=== PATIENT | male | born 1960 | race Caucasian/White ===

== ENCOUNTER 2018-10-11 06:08 | Emergency (ER) | payer MEDICARE, MEDICAID ==
--- NOTE | 2018-10-11 06:22 | ER Document Report ---
ED Extremity Problem, Lower - General Chief Complaint: Foot Injury Stated Complaint: FOOT INJURY Time Seen by Provider: 10/11/18 06:20 TRAVEL OUTSIDE OF THE [place] IN LAST 30 DAYS: No - HPI Notes: Patient is a 58-year-old male that presents to the emergency department for chief complaint of right foot injury. Patient states yesterday while wearing tennis shoes he stepped on a metal rake. The rake went through his shoe and punctured his right foot. He reports increased pain and swelling in the right foot. The pain is worse with ambulation. He has not taken any pxqk-hjp-[id number] medicines for pain. He denies any fevers or chills. He denies foreign body sensation. He is not sure when his last tetanus vaccine was. Past Medical History: Schizophrenia, COPD, hypertension, Bautista's esophagus Past Surgical History: Reviewed in chart Social History: Daily tobacco. History of alcohol abuse. Denies drug use. Family History: Reviewed and noncontributory for presenting illness Allergies: Reviewed, see documented allergy list. REVIEW OF SYSTEMS: CONSTITUTIONAL : No fever No chills No diaphoresis No recent illness EENT: No vision changes No congestion No sore throat CARDIOVASCULAR: No chest pain No palpitations RESPIRATORY: No shortness of breath No cough No difficulty breathing GASTROINTESTINAL: No abdominal pain No nausea No vomiting No diarrhea GENITOURINARY: No dysuria No hematuria No difficulty urinating MUSCULOSKELETAL: No back pain No leg pain No arm pain SKIN: No rashes Right foot lesions LYMPHATIC: No swollen, enlarged glands. NEUROLOGICAL: No lightheadedness No headache No weakness No paresthesias PSYCHIATRIC: No anxiety No depression PHYSICAL EXAMINATION: Vital signs reviewed, nursing noted reviewed. GENERAL: Well-appearing, well-nourished and in no acute distress. HEAD: Atraumatic, normocephalic. EYES: Eyes appear normal, extraocular movements intact, sclera anicteric, conjunctiva are normal. ENT: nares patent, oropharynx clear without exudates. Moist mucous membranes. NECK: Normal range of motion, supple without lymphadenopathy LUNGS: Breath sounds clear to auscultation bilaterally and equal. No wheezes rales or rhonchi. HEART: Regular rate and rhythm without murmurs ABDOMEN: Soft, nontender, normoactive bowel sounds. No rebound, guarding, or rigidity. No masses appreciated. EXTREMITIES: Nontender, good range of motion, no pitting or edema. NEUROLOGICAL: No focal neurological deficits. Moves all extremities spontaneously Motor and sensory grossly intact on exam. PSYCH: Normal mood, normal affect. SKIN: Warm, Dry, normal turgor. Four superficial plantar right foot puncture wound with mild surrounding erythema and edema - Related Data Allergies/Adverse Reactions: Penicillins Allergy (Unknown, Verified 08/18/16 10:14) Unknown reaction Sulfa (Sulfonamide Antibiotics) Allergy (Unknown, Verified 08/18/16 10:14) Unknown reaction Past Medical History - Social History Smoking Status: Current Every Day Smoker Family History: Reviewed & Not Pertinent - Past Medical History Cardiac Medical History: Reports: Hx Hypertension Denies: Hx Coronary Artery Disease, Hx Heart Attack Pulmonary Medical History: Reports: Hx Pneumonia Denies: Hx Asthma, Hx Bronchitis, Hx COPD Neurological Medical History: Denies: Hx Cerebrovascular Accident, Hx Seizures Musculoskeletal Medical History: Reports Hx Arthritis - BACK, Reports Hx Gout Skin Medical History: Reports Hx Cellulitis, Reports Hx MRSA - Immunizations Hx Diphtheria, Pertussis, Tetanus Vaccination: Yes Physical Exam - Vital signs Vitals: Temp Pulse Resp BP Pulse Ox 97.6 F 115 H 20 181/84 H 96 10/11/18 06:15 10/11/18 06:15 10/11/18 06:15 10/11/18 06:15 10/11/18 06:15 Course - Re-evaluation Re-evalutation: 10/11/18 07:08 Vitals reviewed. Nursing notes reviewed. Patient's tetanus vaccine was updated. He was given Tylenol for pain. He does have some surrounding cellulitis which is currently mild. There is no sepsis or lymphatic streaking. Patient was given a dose of Cipro. Xray shows no bony injury or foreign body. Patient discharged in stable condition Foot X-Ray 10/11/18 06:17 IMPRESSION: Diffuse soft tissue swelling without fracture. Negative for radiopaque foreign body copyright 2011 [employer]- All Rights Reserved - Vital Signs Vital signs: Temp Pulse Resp BP Pulse Ox 97.6 F 115 H 20 181/84 H 96 10/11/18 06:15 12 06:15 10/11/18 06:15 10/11/18 06:15 10/11/18 06:15 Discharge - Discharge Clinical Impression: Cellulitis of right foot Puncture wound of right foot Qualifiers: Encounter type: initial encounter Qualified Code(s): S91.331A - Puncture wound without foreign body, right foot, initial encounter Condition: Stable Disposition: HOME, SELF-CARE Instructions: Cellulitis ([facility]), Puncture Wound ([facility]) Additional Instructions: Please return to the emergency department if you have any worsening, or concern of your symptoms. Please return to the emergency department if you develop chest pain, difficulty breathing, severe abdominal pain, or ongoing vomiting. Please follow-up with your primary care physician in 2-3 days and any other recommended physicians. If prescribed, take all medications as directed. If you have any questions or concerns do not hesitate to return the emergency department for evaluation. [] Prescriptions: Ciprofloxacin HCl [Cipro 500 mg Tablet] 500 mg PO BID #20 tablet Referrals: TORRES QUARLES PA-C [NO LOCAL MD] - Follow up in 3-5 days
--- NOTE | 2018-10-11 06:53 | RADIOLOGY REPORT (SQ) ---
EXAM DESCRIPTION: XR FOOT 3 OR MORE VIEWS COMPLETED DATE/TME: 10/11/2018 06:17 CLINICAL HISTORY: 58 years, Male, pain/possible foreign object COMPARISON: None. NUMBER OF VIEWS: 3 TECHNIQUE: 3 view right foot LIMITATIONS: FINDINGS: Negative for acute fracture or dislocation. Negative for radiopaque foreign body. There is diffuse soft tissue swelling. IMPRESSION: Diffuse soft tissue swelling without fracture. Negative for radiopaque foreign body copyright 2010 [employer] All Rights Reserved
[2018-10-11] MEDS ORDERED: ACETAMINOPHEN 325 MG TABLET PO ONE (07:02)
[2018-10-11] MEDS ORDERED: CIPROFLOXACIN HCL 500 MG TABLET PO ONE (07:02)
[2018-10-11] MEDS ORDERED: DIPH/PERTUSS(ACELL)/TETANUS VAC/PF 0.5 ML SYR (>=10YO) IM ONE (07:06)
[2018-10-11 07:25] VITALS: BP 170/66
== END 2018-10-11 07:23 | disposition home or self-care (01) ==
LOC: ER 06:08
DX: S91.331A Puncture wound without foreign body, right foot, initial encounter (principal); L03.115 Cellulitis of right lower limb; Z88.0 Allergy status to penicillin; Z88.2 Allergy status to sulfonamides; F17.210 Nicotine dependence, cigarettes, uncomplicated; I10 Essential (primary) hypertension; Z87.01 Personal history of pneumonia (recurrent); Z86.14 Personal history of Methicillin resistant Staphylococcus aureus infection; W27.1XXA Contact with garden tool, initial encounter; Y92.096 Garden or yard of other non-institutional residence as the place of occurrence of the external cause
CPT/HCPCS: 99283; 90471; 73630; 90715; A9270 ×2

== ENCOUNTER → 2018-10-13 | Outpatient (CLI) | payer MEDICARE, MEDICAID | LOC: OD 13:12 | PROVIDERS: ATTEND Physician Assistant | DX: R07.9 Chest pain, unspecified (principal); R00.0 Tachycardia, unspecified | CPT/HCPCS: 36415; 84443 ==

== ENCOUNTER 2019-01-13 19:29 | Emergency (ER) | payer MEDICARE, MEDICAID ==
--- NOTE | 2019-01-13 20:40 | ER Document Report ---
ED General - General Chief Complaint: Shortness Of Breath Stated Complaint: CHEST PAIN Time Seen by Provider: 01/13/19 20:32 Primary Care Provider: GERMAN ORTIZ PA [Primary Care Provider] - Follow up as needed Notes: Patient is a 58-year-old male with a past medical history of hypertension, COPD, current everyday smoker, presents complaining of 2 weeks of left-sided chest pain that has become progressively worse over that period of time. Patient describes the pain as being a stabbing, severe pain worsened by breathing. States that originally was intermittent but has now become constant over the last 2 days. Nothing seems to improve his symptoms. Denies any history of similar symptoms in the past. Patient reports that he is tachycardia at baseline has had recurrent chest pain under similar circumstances and has been following with a local control equipment electrician regarding these issues. States that he had a monitor done but has not yet had a stress test. Denies any known history of coronary artery disease. Nothing is necessarily new or different that prompted a visit to the emergency department today. TRAVEL OUTSIDE OF THE [place] IN LAST 30 DAYS: No - Related Data Allergies/Adverse Reactions: Penicillins Allergy (Unknown, Verified 08/18/16 10:14) Unknown reaction Sulfa (Sulfonamide Antibiotics) Allergy (Unknown, Verified 08/18/16 10:14) Unknown reaction Past Medical History - General Information source: Patient - Social History Smoking Status: Current Every Day Smoker Frequency of alcohol use: Occasional Drug Abuse: None Lives with: Family Family History: Reviewed & Not Pertinent - Past Medical History Cardiac Medical History: Reports: Hx Hypertension Denies: Hx Coronary Artery Disease, Hx Heart Attack Pulmonary Medical History: Reports: Hx Pneumonia Denies: Hx Asthma, Hx Bronchitis, Hx COPD Neurological Medical History: Denies: Hx Cerebrovascular Accident, Hx Seizures Renal/ Medical History: Denies: Hx Peritoneal Dialysis Musculoskeletal Medical History: Reports Hx Arthritis - BACK, Reports Hx Gout Skin Medical History: Reports Hx Cellulitis, Reports Hx MRSA - Immunizations Hx Diphtheria, Pertussis, Tetanus Vaccination: Yes Review of Systems - Review of Systems Notes: Constitutional: Negative for fever. HENT: Negative for sore throat. Eyes: Negative for visual changes. Cardiovascular: Positive for chest pain. Respiratory: Positive for shortness of breath. Gastrointestinal: Negative for abdominal pain, vomiting or diarrhea. Genitourinary: Negative for dysuria. Musculoskeletal: Negative for back pain. Skin: Negative for rash. Neurological: Negative for headaches, weakness or numbness. 10 point ROS negative except as marked above and in HPI. Physical Exam - Vital signs Vitals: Temp Pulse Resp BP Pulse Ox 98.3 F 116 H 24 H 87/57 L 92 01/13/19 20:13 01/13/19 20:13 01/13/19 20:13 01/13/19 20:13 01/13/19 20:13 Interpretation: Hypotensive, Tachycardic Notes: PHYSICAL EXAMINATION: GENERAL: Appears moderately uncomfortable but in no acute distress HEAD: Atraumatic, normocephalic. EYES: Pupils equal round and reactive to light, extraocular movements intact, sclera anicteric, conjunctiva are normal. ENT: nares patent, oropharynx clear without exudates. Moderate dry mucous membranes. NECK: Normal range of motion, supple without lymphadenopathy LUNGS: Breath sounds clear to auscultation bilaterally and equal. Faint expiratory wheezing HEART: Regular tachycardia without murmurs ABDOMEN: Soft, nontender, normoactive bowel sounds. No guarding, no rebound. No masses appreciated. EXTREMITIES: Normal range of motion, no pitting or edema. No cyanosis. NEUROLOGICAL: No focal neurological deficits. Moves all extremities spontaneously and on command. PSYCH: Normal mood, normal affect. SKIN: Warm, Dry, normal turgor, no rashes or lesions noted. Course - Re-evaluation Re-evalutation: 01/13/19 20:57 Patient presents with 2 weeks of stabbing left-sided chest pain, started intermittently, has become more constant since onset. Patient notes heart to take a deep breath. Noted to be tachycardic on presentation although he does report that he is normally mildly tachycardic typically in the 102-110 range. Relatively high level of concern for an acute pulmonary embolus as patient continuously states that his pain is severe, worsened by breathing, states that he cannot get a good breath due to this pain. The patient was also noted to be hypotensive at time of presentation in the 80s systolic. Multiple repeat EKGs show mild ST elevations in the inferior leads although the duration of the patient's symptoms as well as his characterization of pain as well as the height of the elevation of the ST changes is not sensitive enough to declare this being an ST elevation [place]. Will proceed with CTA of the chest, labs including troponin assay testing, symptom control and reassess. 01/13/19 22:48 Troponin is finally resulted and is elevated at 4.06. Patient symptoms are much improved. Given his EKG changes, troponin elevation, patient will be started on aspirin, lovenox, atorvastatin, transfer for cath. 01/13/19 23:34 I did discuss this case with the attending control equipment electrician at [facility] . He was unable to review EKGs although these were faxed. We did discuss the atypical nature of the patient's pain, the borderline nature of the ECG elevations in leads II and III that he is currently chest pain-free. The patient will be transferred not as a STEMI but as a NSTEMI. Patient is currently chest pain-free. 01/13/19 23:50 The patient has chosen to leave the facility against medical advice. The relevant issues have been reviewed and discussed with the patient and family at the bedside. At the time of this assessment there is no indication for involuntary commitment. The patient is alert, oriented, and able to express clearly their reasoning for not wanting to remain in the emergency department for further treatment. The patient is not clinically psychotic, intoxicated, and denies and suicidal ideation. Differential or suspected diagnoses based on medical screening exam: Acute [place] (NSTEMI vs STEMI) The patient is aware of the concerning diagnoses and acknowledges understanding of the reasons for the following recommendations: Transfer for cardiac cath, possible bypass The following recommendations/services were offered and refused: Transfer, ongoing medical management The following risks were explained: , [place], permanent disability, loss of function Clinical impression: Patient is competent to make decisions regarding the medical that is being offered. This conversation was had in front of the charge nurse Haleigh Zavala as well as the bedside nurse. Review their documentation for supporting evidence of this conversation and its completeness. 01/14/19 03:06 - Vital Signs Vital signs: Temp Pulse Resp BP Pulse Ox 98.3 F 116 H 12 114/74 94 01/13/19 20:13 01/13/19 20:13 01/13/19 23:46 01/13/19 23:46 01/13/19 23:46 - Laboratory Result Diagrams: 01/13/19 20:22 01/13/19 21:50 Laboratory results interpreted by me: 01/13/19 01/13/19 20:22 21:50 RBC 4.14 L MCH 35.1 H MCHC 36.2 H Sodium 135.4 L Calcium 8.1 L Total Protein 5.6 L Albumin 3.0 L - Diagnostic Test Radiology reviewed: Reports reviewed - EKG Interpretation by Me Additional EKG results interpreted by me: 01/14/19 03:16 Sinus tachycardia, rate 115, 0.5 mm elevation in leads II and III without r eciprocal changes. QTC 482 Critical Care Note - Critical Care Note Total time excluding time spent on procedures (mins): 36 Comments: Critical care time spent obtaining history from patient or surrogate, di scussions with consultants, development of treatment plan with patient or surrogate, evaluation of patient's response to treatment, examination of patient, ordering and performing treatments and interventions, ordering and review of laboratory studies, re-evaluation of patient's condition, ordering and review of radiographic studies and review of old charts Discharge - Discharge Clinical Impression: NSTEMI (non-ST elevated myocardial infarction) Chest pain Qualifiers: Chest pain type: unspecified Qualified Code(s): R07.9 - Chest pain, unspecified Condition: Critical Disposition: AGAINST MEDICAL ADVICE Additional Instructions: You have left the hospital AGAINST MEDICAL ADVICE today. I believe you are having a Heart attack based on your elevated blood work and your EKGs. I have tried to explain to the seriousness of your diagnosis and the very real chance that you could go home and . Your strongly encouraged to return to the hospital to complete your treatment plan which includes transfer to an alternative facility for cardiac catheterization and consideration of bypass. At any time your welcome to return to this hospital or any alternative hospital to complete your treatment. Referrals: GERMAN ORTIZ PA [Primary Care Provider] - Follow up as needed
[2019-01-13 20:42] LABS: ABSOLUTE BASOPHILS # (AUTO) 0.1 10^3/uL (0.0-0.2); ABSOLUTE EOSINOPHILS # (AUTO) 0.2 10^3/uL (0.0-0.6); ABSOLUTE LYMPHOCYTES (AUTO) 1.7 10^3/uL (0.5-4.7); ABSOLUTE MONOCYTES (AUTO) 0.9 10^3/uL (0.1-1.4); ABSOLUTE NEUT (AUTO) 7.5 10^3/uL (1.7-8.2); BASOPHILS % (AUTO) 0.6 % (0-2); EOSINOPHILS % (AUTO) 2.1 % (0-6); HEMATOCRIT 40.3 % (37.9-51.0); HEMOGLOBIN 14.6 g/dL (13.5-17.0); LYMPHOCYTES % (AUTO) 16.5 % (13-45); MEAN CORPUSCULAR HEMOGLOBIN 35.1 pg (27.0-33.4); MEAN CORPUSCULAR HGB CONC 36.2 g/dL (32.0-36.0); MEAN CORPUSCULAR VOLUME 97 fl (80-97); MONOCYTES % (AUTO) 8.8 % (3-13); PLATELET COUNT 384 10^3/uL (150-450); RED BLOOD COUNT 4.14 10^6/uL (4.35-5.55); RED CELL DISTRIBUTION WIDTH 13.5 % (11.5-14.0); TOTAL CELLS COUNTED % (AUTO) 100 %; WHITE BLOOD COUNT 10.5 10^3/uL (4.0-10.5)
[2019-01-13] MEDS ORDERED: KETOROLAC TROMETHAMINE INJ/PF 30 MG/1 ML SDV IV ONE (20:59)
[2019-01-13] MEDS ORDERED: NORMAL SALINE 1000 ML 1,000 ML IV ONE (20:59)
--- NOTE | 2019-01-13 21:40 | RADIOLOGY REPORT (SQ) ---
EXAM DESCRIPTION: CT CHEST ANGIOGRAPHY WITHOUT THEN WITH IV CONTRAST COMPLETED DATE/TME: 01/13/2019 20:34 CLINICAL HISTORY: 58 years, Male, hypotension, pleuritic pain PROCEDURE: CLINICAL HISTORY: 58 years Male hypotension, pleuritic pain COMPARISON: None. TECHNIQUE: Contiguous axial images were obtained through the chest during the infusion of IV contrast. Reformatted images obtained. MIP reformatted images obtained. This exam was performed according to our department optimization program which includes automated exposure control, adjustment of the mA and/or kv according to patient size and/or use of iterative reconstruction technique. FINDINGS: There are mildly enlarged mediastinal lymph nodes. Atherosclerosis is seen. There is a small hiatal hernia. There is extensive emphysematous change of the lungs with numerous peripheral pulmonary bulla. Atelectasis and scar involve the lung bases. No pneumothorax is seen. Heart size is normal. No pleural effusions. No PE is seen. No evidence of aortic aneurysm. No other significant abnormality. IMPRESSION: Mildly enlarged mediastinal lymph nodes. Hiatal hernia. Extensive interstitial disease of the lungs. No evidence of pulmonary embolus.
[2019-01-13 22:34] LABS: ALANINE AMINOTRANSFERASE 34 U/L (21-72); ALKALINE PHOSPHATASE 87 U/L (38-126); ANION GAP 9 (5-19); ASPARTATE AMINO TRANSFERASE 25 U/L (17-59); BILIRUBIN,DIRECT 0.2 mg/dL (0.0-0.4); BILIRUBIN,TOTAL 0.4 mg/dL (0.2-1.3); BLOOD UREA NITROGEN 13 mg/dL (7-20); CALCIUM 8.1 mg/dL (8.4-10.2); CARBON DIOXIDE 23 mmol/L (22-30); CHLORIDE 103 mmol/L (98-107); GLUCOSE 104 mg/dL (75-110); SODIUM 135.4 mmol/L (137-145); TOTAL PROTEIN 5.6 g/dL (6.3-8.2)
[2019-01-13] MEDS ORDERED: ASPIRIN 81 MG TABLET, CHEWABLE PO ONE (22:49)
[2019-01-13] MEDS ORDERED: ATORVASTATIN CALCIUM 80 MG TABLET PO ONE (22:49)
[2019-01-13] MEDS ORDERED: ENOXAPARIN SODIUM INJ 80 MG/0.8 ML DISP.SYRIN SUBCUT SCH (23:00)
[2019-01-14 00:09] VITALS: BP 114/74
--- NOTE | 2019-01-14 07:28 | EKG REPORT ---
SEVERITY:- ABNORMAL ECG - SINUS TACHYCARDIA INFERIOR INFARCT : ? AGE BORDERLINE PROLONGED QT INTERVAL : Confirmed by: Graciela Gan MD 14-Jan-2019 07:27:45
--- NOTE | 2019-01-14 07:29 | EKG REPORT ---
SEVERITY:- ABNORMAL ECG - SINUS TACHYCARDIA INFERIOR INFARCT : ? AGE : Confirmed by: Graciela Gan MD 14-Jan-2019 07:28:14
--- NOTE | 2019-01-14 07:29 | EKG REPORT ---
SEVERITY:- ABNORMAL ECG - SINUS TACHYCARDIA PROBABLE LEFT ATRIAL ABNORMALITY CONSISTENT WITH INFERIOR INFARCT ST ELEVATION SUGGESTS PERICARDITIS : Confirmed by: Graciela Gan MD 14-Jan-2019 07:29:09
[2019-01-14] MEDS ORDERED: ENOXAPARIN SODIUM INJ 80 MG/0.8 ML DISP.SYRIN SUBCUT SCH (10:00)
== END 2019-01-14 00:13 | disposition left against medical advice (07) ==
LOC: ER 19:29
DX: I21.4 Non-ST elevation (NSTEMI) myocardial infarction (principal); R06.02 Shortness of breath; R07.9 Chest pain, unspecified; I10 Essential (primary) hypertension; J44.9 Chronic obstructive pulmonary disease, unspecified; F17.200 Nicotine dependence, unspecified, uncomplicated; Z88.0 Allergy status to penicillin; Z88.2 Allergy status to sulfonamides
CPT/HCPCS: 93005; 99291; 96372; 96374; 36415; 85025; 80053; 84484; 71275; 93010; A9270 ×2; J1885; J7030; J1650

== ENCOUNTER → 2019-02-02 | Outpatient (CLI) | payer MEDICARE, MEDICAID ==
[2019-02-02 10:46] LABS: ABSOLUTE BASOPHILS # (AUTO) 0.1 10^3/uL (0.0-0.2); ABSOLUTE EOSINOPHILS # (AUTO) 0.5 10^3/uL (0.0-0.6); ABSOLUTE LYMPHOCYTES (AUTO) 1.8 10^3/uL (0.5-4.7); ABSOLUTE MONOCYTES (AUTO) 0.5 10^3/uL (0.1-1.4); ABSOLUTE NEUT (AUTO) 4.6 10^3/uL (1.7-8.2); BASOPHILS % (AUTO) 1.9 % (0-2); EOSINOPHILS % (AUTO) 6.7 % (0-6); HEMATOCRIT 43.7 % (37.9-51.0); HEMOGLOBIN 15.7 g/dL (13.5-17.0); LYMPHOCYTES % (AUTO) 24.1 % (13-45); MEAN CORPUSCULAR HEMOGLOBIN 34.6 pg (27.0-33.4); MEAN CORPUSCULAR HGB CONC 35.9 g/dL (32.0-36.0); MEAN CORPUSCULAR VOLUME 96 fl (80-97); MONOCYTES % (AUTO) 6.4 % (3-13); PLATELET COUNT 321 10^3/uL (150-450); RED BLOOD COUNT 4.53 10^6/uL (4.35-5.55); RED CELL DISTRIBUTION WIDTH 13.4 % (11.5-14.0); SEGMENTED NEUTROPHILS % (AUTO) 60.9 % (42-78); TOTAL CELLS COUNTED % (AUTO) 100 %; WHITE BLOOD COUNT 7.6 10^3/uL (4.0-10.5)
[2019-02-02 11:16] LABS: ALANINE AMINOTRANSFERASE 25 U/L (21-72); ALBUMIN 3.9 g/dL (3.5-5.0); ALKALINE PHOSPHATASE 96 U/L (38-126); AMYLASE 48 U/L (30-110); ANION GAP 8 (5-19); ASPARTATE AMINO TRANSFERASE 20 U/L (17-59); BILIRUBIN,DIRECT 0.3 mg/dL (0.0-0.4); BILIRUBIN,TOTAL 0.6 mg/dL (0.2-1.3); BLOOD UREA NITROGEN 20 mg/dL (7-20); C-REACTIVE PROTEIN 12.7 mg/L (<10.0); CALCIUM 10.1 mg/dL (8.4-10.2); CARBON DIOXIDE 31 mmol/L (22-30); CHLORIDE 101 mmol/L (98-107); GLUCOSE 126 mg/dL (75-110); LIPASE 95.2 U/L (23-300); POTASSIUM 4.1 mmol/L (3.6-5.0); SODIUM 139.6 mmol/L (137-145)
--- NOTE | 2019-02-02 12:17 | RADIOLOGY REPORT (SQ) ---
EXAM DESCRIPTION: ACUTE ABDOMEN SERIES COMPLETED DATE/TIME: 02/02/2019 10:29 am REASON FOR STUDY: GENERALIZED ABDOMINAL PAIN R10.84 GENERALIZED ABDOMINAL PAIN COMPARISON: None. NUMBER OF VIEWS: Three views. TECHNIQUE: Frontal chest, supine abdomen and upright/decubitus abdomen radiographic images acquired. LIMITATIONS: None. FINDINGS: CHEST: Lungs clear of infiltrates. FREE AIR: None. No abnormal gas collections. BOWEL GAS PATTERN: Nonobstructive pattern. No dilated loops or air fluid levels. CALCIFICATIONS: No suspicious calcifications. HARDWARE: None in the abdomen. SOFT TISSUES: No gross mass or suggestion of organomegaly. BONES: No acute fracture. No worrisome bone lesions. OTHER: No other significant finding. IMPRESSION: NO RADIOGRAPHIC EVIDENCE FOR ACUTE ABDOMINAL DISEASE. TECHNICAL DOCUMENTATION: JOB ID: [id number] [employer]- All Rights Reserved Reading location - IP/workstation name: [email or web address]
== END ==
LOC: RAD 10:05
PROVIDERS: ATTEND Family Medicine
DX: R10.84 Generalized abdominal pain (principal)
CPT/HCPCS: 36415; 74022; 80053; 82150; 83690; 85025; 86140

== ENCOUNTER 2019-08-08 13:49 | Emergency (ER) | payer MEDICARE, MEDICAID ==
[2019-08-08] MEDS ORDERED: ACETAMINOPHEN 325 MG TABLET PO ONE (15:05)
[2019-08-08] MEDS ORDERED: CLINDAMYCIN 600 MG/D5W RTU 600 MG/50 ML RTUPB IV ONE (15:05)
[2019-08-08 15:42] LABS: ABSOLUTE EOSINOPHILS # (AUTO) 0.1 10^3/uL (0.0-0.6); ABSOLUTE LYMPHOCYTES (AUTO) 1.2 10^3/uL (0.5-4.7); ABSOLUTE MONOCYTES (AUTO) 0.7 10^3/uL (0.1-1.4); ABSOLUTE NEUT (AUTO) 3.7 10^3/uL (1.7-8.2); BASOPHILS % (AUTO) 0.8 % (0-2); EOSINOPHILS % (AUTO) 1.8 % (0-6); HEMATOCRIT 44.3 % (37.9-51.0); HEMOGLOBIN 15.3 g/dL (13.5-17.0); LYMPHOCYTES % (AUTO) 20.6 % (13-45); MEAN CORPUSCULAR HEMOGLOBIN 34.7 pg (27.0-33.4); MEAN CORPUSCULAR HGB CONC 34.5 g/dL (32.0-36.0); MEAN CORPUSCULAR VOLUME 101 fl (80-97); MONOCYTES % (AUTO) 12.1 % (3-13); PLATELET COUNT 240 10^3/uL (150-450); RED BLOOD COUNT 4.41 10^6/uL (4.35-5.55); RED CELL DISTRIBUTION WIDTH 13.8 % (11.5-14.0); SEGMENTED NEUTROPHILS % (AUTO) 64.7 % (42-78); TOTAL CELLS COUNTED % (AUTO) 100 %; WHITE BLOOD COUNT 5.7 10^3/uL (4.0-10.5)
--- NOTE | 2019-08-08 15:57 | RADIOLOGY REPORT (SQ) ---
EXAM DESCRIPTION: TIBIA FIBULA RIGHT COMPLETED DATE/TIME: 08/08/2019 3:49 pm REASON FOR STUDY: RLE injury, wound infections COMPARISON: None. NUMBER OF VIEWS: Two views. TECHNIQUE: Two radiographic images acquired of the right tibia and fibula to include the knee and an kle in at least one projection. LIMITATIONS: None. FINDINGS: MINERALIZATION: Normal. BONES: No acute fracture or dislocation. No worrisome bone lesions. SOFT TISSUES: No obvious swelling or foreign body. OTHER: No other significant finding. IMPRESSION: NEGATIVE STUDY OF THE RIGHT TIBIA AND FIBULA. NO RADIOGRAPHIC EVIDENCE OF ACUTE INJURY. TECHNICAL DOCUMENTATION: JOB ID: [id number] [employer]- All Rights Reserved Reading location - IP/workstation name: [email or web address]
[2019-08-08 16:01] LABS: ANION GAP 8 (5-19); BLOOD UREA NITROGEN 17 mg/dL (7-20); CALCIUM 9.5 mg/dL (8.4-10.2); CARBON DIOXIDE 28 mmol/L (22-30); CHLORIDE 101 mmol/L (98-107); GLUCOSE 104 mg/dL (75-110); POTASSIUM 3.9 mmol/L (3.6-5.0)
--- NOTE | 2019-08-08 16:05 | ER Document Report ---
HPI - HPI Patient complains to provider of: Leg wound Time Seen by Provider: 08/08/19 14:26 Onset: Other - 4 days Onset/Duration: Worse Quality of pain: Achy Pain Level: 4 Context: Patient states that he fell on a galvanized pipe 4 days ago cutting his right lower leg. Area has gradually become more painful and erythematous. Patient denies any fever. Associated Symptoms: Other - Right lower leg pain. denies: Fever Exacerbated by: Movement, Walking Relieved by: Denies Similar symptoms previously: No Recently seen / treated by doctor: No - ROS ROS below otherwise negative: Yes Systems Reviewed and Negative: Yes All other systems reviewed and negative - CONSTITUTIONAL Constitutional: DENIES: Fever, Chills - GASTROINTESTINAL Gastrointestinal: DENIES: Nausea - MUSCULOSKELETAL Musculoskeletal: REPORTS: Extremity pain, Swelling - DERM Skin Color: Erythema Skin Problems: Open to Air Past Medical History - General Information source: Patient - Social History Smoking Status: Current Every Day Smoker Chew tobacco use (# tins/day): No Smoking Education Provided: Yes Frequency of alcohol use: Occasional Drug Abuse: None Occupation: None Lives with: Alone Family History: Reviewed & Not Pertinent Patient has suicidal ideation: No Patient has homicidal ideation: No - Past Medical History Cardiac Medical History: Reports: Hx Hypertension Pulmonary Medical History: Reports: Hx Pneumonia Neurological Medical History: Denies: Hx Cerebrovascular Accident, Hx Seizures Renal/ Medical History: Denies: Hx Peritoneal Dialysis Musculoskeletal Medical History: Reports Hx Arthritis - BACK, Reports Hx Gout Skin Medical History: Reports Hx Cellulitis, Reports Hx MRSA Surgical Hx: Negative - Immunizations Hx Diphtheria, Pertussis, Tetanus Vaccination: Yes Vertical Provider Document - CONSTITUTIONAL Agree With Documented VS: Yes Exam Limitations: No Limitations General Appearance: WD/WN, No Apparent Distress - INFECTION CONTROL TRAVEL OUTSIDE OF THE [place] IN LAST 30 DAYS: No - HEENT HEENT: Atraumatic, Normocephalic - NECK Neck: Normal Inspection, Supple - RESPIRATORY Respiratory: Breath Sounds Normal, No Respiratory Distress - CARDIOVASCULAR Cardiovascular: Regular Rate, Regular Rhythm Pulses: Normal: Radial - MUSCULOSKELETAL/EXTREMETIES Musculoskeletal/Extremeties: MAEW, FROM - NEURO Level of Consciousness: Awake, Alert, Appropriate Motor/Sensory: No Motor Deficit - DERM Integumentary: Warm, Dry. negative: Abscess Notes: Patient with open wound to anterior aspect of right lower extremity with surrounding erythema. Wound edges darkened. Course - Re-evaluation Re-evalutation: 08/08/19 16:05 Dr. Espino to bedside for examination. Recommends outpatient surgical follow-up and wet-to-dry dressings. - Vital Signs Vital signs: Temp Pulse Resp BP Pulse Ox 97.7 F 111 H 18 171/92 H 99 08/08/19 14:34 08/08/19 14:34 08/08/19 14:24 08/08/19 14:34 08/08/19 14:34 - Laboratory Result Diagrams: 08/08/19 15:20 08/08/19 15:20 Laboratory results interpreted by me: 08/08/19 15:20 MCV 101 H MCH 34.7 H 08/08/19 16:24 Labs- Entire Visit 08/08/19 08/08/19 15:20 15:20 WBC 5.7 RBC 4.41 Hgb 15.3 Hct 44.3 MCV 101 H MCH 34.7 H MCHC 34.5 RDW 13.8 Plt Count 240 Lymph % (Auto) 20.6 Morrill % (Auto) 12.1 Eos % (Auto) 1.8 Baso % (Auto) 0.8 Absolute Neuts (auto) 3.7 Absolute Lymphs (auto) 1.2 Absolute Monos (auto) 0.7 Absolute Eos (auto) 0.1 Absolute Basos (auto) 0.0 Seg Neutrophils % 64.7 Sodium 136.5 L Potassium 3.9 Chloride 101 Carbon Dioxide 28 Anion Gap 8 BUN 17 Creatinine 0.91 Est GFR ( Amer) > 60 Est GFR (MDRD) Non-Af > 60 Glucose 104 Calcium 9.5 - Diagnostic Test Radiology reviewed: Image reviewed, Reports reviewed Discharge - Discharge Clinical Impression: Leg wound, right Qualifiers: Encounter type: initial encounter Qualified Code(s): S81.801A - Unspecified open wound, right lower leg, initial encounter Cellulitis Qualifiers: Site of cellulitis: extremity Site of cellulitis of extremity: lower extremity Laterality: right Qualified Code(s): L03.115 - Cellulitis of right lower limb Condition: Stable Disposition: HOME, SELF-CARE Instructions: Antibiotic Therapy ([facility]), Cellulitis ([facility]), Clindamycin ([facility]) Additional Instructions: Return as needed for any new or worsening symptoms Get antibiotic filled today and take as prescribed Follow up with the surgical clinic for a recheck on August 11 at 2:15 Change dressing twice a day with a wet-to-dry dressing Prescriptions: Clindamycin HCl [Cleocin Hcl] 300 mg PO QID #28 capsule Forms: Smoking Cessation Education Referrals: [facility] [Provider Group] - 08/11/19 2:15 pm
[2019-08-08 16:55] VITALS: BP 168/78
== END 2019-08-08 16:54 | disposition home or self-care (01) ==
LOC: ER 13:49
DX: S81.801A Unspecified open wound, right lower leg, initial encounter (principal); L03.115 Cellulitis of right lower limb; W19.XXXA Unspecified fall, initial encounter; Y92.9 Unspecified place or not applicable; F17.200 Nicotine dependence, unspecified, uncomplicated; I10 Essential (primary) hypertension; Z86.14 Personal history of Methicillin resistant Staphylococcus aureus infection
CPT/HCPCS: 36415; 87040; 87070; 87205; 85025; 87077; 80048; 73590; A9270; 87186

== ENCOUNTER → 2019-08-11 | Outpatient (CLI) | payer MEDICARE, MEDICAID ==
--- NOTE | 2019-08-11 16:28 | RADIOLOGY REPORT (SQ) ---
EXAM DESCRIPTION: L SPINE WHOLE COMPLETED DATE/TIME: 08/11/2019 1:38 pm REASON FOR STUDY: M54.5 LOW BACK PAIN M54.5 LOW BACK PAIN COMPARISON: None. NUMBER OF VIEWS: Five views including obliques. TECHNIQUE: AP, lateral, oblique, and sacral radiographic images acquired of the lumbar spine. LIMITATIONS: None. FINDINGS: MINERALIZATION: Normal. SEGMENTATION: Normal. No transitional anatomy. ALIGNMENT: Grade 1 anterolisthesis of L5 on S1. VERTEBRAE: Maintained height. No fracture or worrisome bone lesion. DISCS: All the disc spaces are narrowed. Marginal osteophytes are present throughout. POSTERIOR ELEMENTS: Hypertrophic facet changes from L4-S1. Bilateral pars defects at L5. HARDWARE: None in the spine. PARASPINAL SOFT TISSUES: Normal. PELVIS: Intact as visualized. No fractures or worrisome bone lesions. SI joints intact. OTHER: No other significant finding. IMPRESSION: Anterolisthesis of L5 on S1 with bilateral pars defects. Multilevel degenerative disc d isease and spondylosis. Facet arthropathy. TECHNICAL DOCUMENTATION: JOB ID: [id number] All Rights Reserved Reading location - IP/workstation name: [email or web address]
== END ==
LOC: RAD 13:15
PROVIDERS: ATTEND Family Medicine
DX: M51.36 Other intervertebral disc degeneration, lumbar region (principal); M47.896 Other spondylosis, lumbar region; M54.5 Low back pain
CPT/HCPCS: 72110

== ENCOUNTER → 2019-12-27 | Outpatient (CLI) | payer MEDICARE, MEDICAID ==
--- NOTE | 2020-01-02 11:46 | XCELERA REPORT ---
[address] [address] Lower Extremity Arterial Evaluation Name: ALVARO BOURGEOIS Age: 59 yrs Gender: Male : 1960 Patient Status: Outpatient Patient Location: Study Date: 12/27/2019 10:08 AM Procedure: A color flow and duplex scan of the lower extremity arteries was performed bilaterally with velocity and waveform anaylsis. Reason For Study: LEG PAIN Ordering Physician: LUKE RAMON Performed By: Sachin Lundberg Measurements and Calculations Right Left CONFERENCE PLANNER PSV 150.1 140.6 cm/sec Prox PFA PSV -377.1 -220.0cm/sec Mid SFA PSV 33.0 cm/sec Dist SFA PSV -14.7 cm/sec Prox Pop A PSV 51.9 51.4 cm/sec Dist Pop A PSV -44.8 -46.9 cm/sec Dist PAULA PSV 20.6 19.6 cm/sec Dist UPPER DOUBLER PSV 15.7 51.4 cm/sec Blake Pedis PSV 27.5 18.8 cm/sec Right Side Arterial Evaluation Normal velocity and triphasic waveforms noted in the Common Femoral artery. Occluded femoral artery. Biphasic with low velocity from the reconstituted Popliteal to the infrageniculate arteries. Ankle Brachial index not done. Left Side Arterial Evaluation Normal velocity and triphasic waveforms noted in the Common Femoral artery. Also in the Deep Femoral with increased velcity. Occluded femoral artery. Biphasic with low velocity from the reconstituted Popliteal to the infrageniculate arteries. Lower flow distally. Ankle Brachial index not done. Interpretation Summary Moderate hemodynamically significant lesions in the bilateral lower extremities, on duplex imaging, at rest. Duplex with bilaterally occluded Femoral arteries, with reconstituted flow as noted. Probable stenosis in the left Deep Femoral artery. : LUKE RAMON > Luke Ramon
== END ==
LOC: SP 09:57
PROVIDERS: ATTEND Surgery
DX: M79.606 Pain in leg, unspecified (principal)
CPT/HCPCS: 93925

== ENCOUNTER → 2020-01-10 | Outpatient (CLI) | payer MEDICARE, MEDICAID ==
[2020-01-10 10:30] LABS: ABSOLUTE BASOPHILS # (AUTO) 0.1 10^3/uL (0.0-0.2); ABSOLUTE EOSINOPHILS # (AUTO) 0.5 10^3/uL (0.0-0.6); ABSOLUTE LYMPHOCYTES (AUTO) 1.9 10^3/uL (0.5-4.7); ABSOLUTE MONOCYTES (AUTO) 0.5 10^3/uL (0.1-1.4); BASOPHILS % (AUTO) 1.4 % (0-2); EOSINOPHILS % (AUTO) 7.7 % (0-6); HEMATOCRIT 47.5 % (37.9-51.0); HEMOGLOBIN 16.5 g/dL (13.5-17.0); LYMPHOCYTES % (AUTO) 32.5 % (13-45); MEAN CORPUSCULAR HEMOGLOBIN 35.7 pg (27.0-33.4); MEAN CORPUSCULAR HGB CONC 34.8 g/dL (32.0-36.0); MEAN CORPUSCULAR VOLUME 103 fl (80-97); MONOCYTES % (AUTO) 8.4 % (3-13); PLATELET COUNT 277 10^3/uL (150-450); RED BLOOD COUNT 4.62 10^6/uL (4.35-5.55); RED CELL DISTRIBUTION WIDTH 13.8 % (11.5-14.0); TOTAL CELLS COUNTED % (AUTO) 100 %
[2020-01-10 10:56] LABS: ALKALINE PHOSPHATASE 110 U/L (38-126); ANION GAP 11 (5-19); ASPARTATE AMINO TRANSFERASE 43 U/L (17-59); BILIRUBIN,DIRECT 0.4 mg/dL (0.0-0.4); BILIRUBIN,TOTAL 0.6 mg/dL (0.2-1.3); BLOOD UREA NITROGEN 13 mg/dL (7-20); CALCIUM 9.6 mg/dL (8.4-10.2); CARBON DIOXIDE 26 mmol/L (22-30); CHLORIDE 102 mmol/L (98-107); CHOLESTEROL 190.34 mg/dL (0-200); GLUCOSE 111 mg/dL (75-110); POTASSIUM 3.8 mmol/L (3.6-5.0); TOTAL PROTEIN 7.4 g/dL (6.3-8.2); TRIGLYCERIDES 265 mg/dL (<150)
[2020-01-10 11:07] LABS: DIRECT LDL 128 mg/dL (<100)
== END ==
LOC: OD 09:35
PROVIDERS: ATTEND Nurse Practitioner Psychiatric/Mental Health
DX: Z51.81 Encounter for therapeutic drug level monitoring (principal); Z79.899 Other long term (current) drug therapy
CPT/HCPCS: 36415; 80053; 80061; 84443; 85025

== ENCOUNTER → 2020-07-07 | Outpatient (CLI) | payer MEDICARE, MEDICAID ==
[2020-07-07 10:47] LABS: ABSOLUTE BASOPHILS # (AUTO) 0.1 10^3/uL (0.0-0.2); ABSOLUTE EOSINOPHILS # (AUTO) 0.5 10^3/uL (0.0-0.6); ABSOLUTE LYMPHOCYTES (AUTO) 1.5 10^3/uL (0.5-4.7); ABSOLUTE MONOCYTES (AUTO) 0.5 10^3/uL (0.1-1.4); ABSOLUTE NEUT (AUTO) 3.8 10^3/uL (1.7-8.2); BASOPHILS % (AUTO) 1.4 % (0-2); EOSINOPHILS % (AUTO) 7.5 % (0-6); HEMATOCRIT 45.6 % (37.9-51.0); LYMPHOCYTES % (AUTO) 23.6 % (13-45); MEAN CORPUSCULAR HGB CONC 35.2 g/dL (32.0-36.0); MEAN CORPUSCULAR VOLUME 99 fl (80-97); MONOCYTES % (AUTO) 8.3 % (3-13); PLATELET COUNT 387 10^3/uL (150-450); RED BLOOD COUNT 4.59 10^6/uL (4.35-5.55); RED CELL DISTRIBUTION WIDTH 13.4 % (11.5-14.0); SEGMENTED NEUTROPHILS % (AUTO) 59.2 % (42-78); TOTAL CELLS COUNTED % (AUTO) 100 %; WHITE BLOOD COUNT 6.4 10^3/uL (4.0-10.5)
[2020-07-07 11:11] LABS: ALBUMIN 3.9 g/dL (3.5-5.0); ALKALINE PHOSPHATASE 97 U/L (38-126); ANION GAP 8 (5-19); ASPARTATE AMINO TRANSFERASE 48 U/L (17-59); BILIRUBIN,DIRECT 0.5 mg/dL (0.0-0.4); BILIRUBIN,TOTAL 0.7 mg/dL (0.2-1.3); BLOOD UREA NITROGEN 13 mg/dL (7-20); CALCIUM 9.3 mg/dL (8.4-10.2); CARBON DIOXIDE 26 mmol/L (22-30); CHLORIDE 104 mmol/L (98-107); GLUCOSE 138 mg/dL (75-110); POTASSIUM 4.5 mmol/L (3.6-5.0); TRIGLYCERIDES 245 mg/dL (<150)
[2020-07-07 11:22] LABS: DIRECT LDL 115 mg/dL (<100)
== END ==
LOC: OD 10:03
PROVIDERS: ATTEND Psychiatry & Neurology Psychiatry
DX: F25.1 Schizoaffective disorder, depressive type (principal); F41.1 Generalized anxiety disorder; F90.2 Attention-deficit hyperactivity disorder, combined type; Z72.0 Tobacco use; Z79.899 Other long term (current) drug therapy
CPT/HCPCS: 36415; 80053; 80061; 84443; 85025